=== PATIENT | male | born 1955 | race African-American/Black ===

== ENCOUNTER 2021-07-17 14:06 | Emergency (ER) | payer OTHER, SELFPAY ==
--- NOTE | ~2021-07-17 | CT_ITS ---
EXAMINATION: CT brain wo con DATE: 07/17/2021 14:54 INDICATION: Head injury. Loss of consciousness. TECHNIQUE: Computed tomography (CT) of the head was performed without intravenous contrast. The dose- length product was 605.33 mGy-cm. Automated exposure control and iterative reconstruction technique w ere employed. COMPARISON: None FINDINGS: Brain parenchymal volume is normal for age. No ventriculomegaly or midline shift. Basilar c isterns are patent. There is mild mucosal thickening of the ethmoid sinuses. Mastoids are pneumatized . No depressed skull fractures. Normal peter-white differentiation. There is a left parietal scalp hem atoma at the vertex. IMPRESSION: 1. No acute intracranial abnormality. Reviewed, dictated and finalized at location A.
--- NOTE | ~2021-07-17 | CT_ITS ---
EXAMINATION: CT cervical spine wo con DATE: 07/17/2021 14:59 INDICATION: head injury, +LOC TECHNIQUE: Computed tomography (CT) of the cervical spine was performed without intravenous contrast. Automated exposure control and iterative reconstruction technique were employed. The dose-length pro duct was 254.69 mGy-cm. COMPARISON: None FINDINGS: Counting reference: Craniocervical junction. There are seven cervical type vertebral bodies. Anatomic Variants: None. Vertebral Body Alignment: Reversal of the normal cervical lordosis. Craniocervical junction: Moderate degenerative change. Alignment intact. Osseous structures/fracture: No evidence of a lytic or blastic process in the visualized spine. N o evidence of acute fracture. Cervical soft tissues: The paraspinal soft tissues planes are maintained. Biapical pleural scarrin g. Degenerative changes: Severe degenerative disc disease at C4-5 and C5-6. Severe multilevel neural for aminal narrowing on the right. Multilevel moderate central canal narrowing. IMPRESSION: No acute fracture or traumatic malalignment in the cervical spine. Reviewed, dictated and finalized at location K.
[2021-07-17 14:16] VITALS: BP 123/71; PULSE 70; RESP 16; TEMP 36.7; O2SAT 100
--- NOTE | 2021-07-17 14:45 | ED.HEATRA ---
HPI - Head Injury General Chief complaint: Head Injury Stated complaint: Head injury Time Seen by Provider: 07/17/21 14:32 History of Present Illness HPI Narrative: 66-year-old male presents to the emergency room for evaluation of a head injury sustained at work earlier today. Patient states that the metal pipe fell from the ceiling and landed on his head, causing him to lose consciousness for an unknown period of time. Patient presents the emergency room with a laceration to the scalp and a headache. Patient denies photophobia, phonophobia, or nausea vomiting. Related Data Allergies Allergy/AdvReac Type Severity Reaction Status Date / Time No Known Allergies Allergy Verified 07/17/21 14:33 Review of Systems Review of Systems: CONSTITUTIONAL: Denies fever, chills, or sweats. EYES: Denies visual changes, redness, or discharge. ENT: Denies rhinorrhea, congestion, sore throat, or otalgia. CARDIOVASCULAR: Denies chest pain, palpitations, or edema. RESPIRATORY: Denies cough or dyspnea. GASTROINTESTINAL: Denies abdominal pain, nausea, vomiting, or diarrhea. GENITOURINARY: Denies dysuria or hematuria. SKIN: Reports scalp laceration MUSCULOSKELETAL: Reports head injury NEUROLOGIC: Denies headache, numbness, dizziness, or weakness. PSYCHIATRIC: Denies anxiety or depression. Exam Narrative: GENERAL: Well-appearing, well-nourished, and in no acute distress. HEAD: Normocephalic. 4 centimeter linear laceration to the scalp EYES: PERRLA and EOMI. ENT: Nares clear, no rhinorrhea or epistaxis. Mucous membranes moist. Oropharynx without tonsillar hypertrophy exudate or other lesions. Bilateral TMs pearly peter nonbulging NECK: Supple. No adenopathy or masses. No carotid bruits or JVD CHEST: Clear to auscultation. No respiratory distress. No wheezes rales or rhonchi HEART: Regular rate and rhythm. No murmur heard. Normal peripheral pulses. ABDOMEN: Soft, nontender, nondistended, normal active bowel sounds. EXTREMITIES: Normal range of motion. No edema. NECK/BACK: Midline cervical tenderness, no step-offs, no bony abnormality, full range of motion SKIN: 2.5 centimeter linear laceration to scalp NEURO: No focal deficits. Alert and oriented x3. PSYCH: Normal mood and affect. Course Vital Signs Vital signs: Vital Signs Temperature 36.7 C 07/17/21 14:16 Pulse Rate 70 07/17/21 14:16 Respiratory Rate 16 07/17/21 14:16 Blood Pressure 123/71 07/17/21 14:16 Pulse Oximetry 100 07/17/21 14:16 Temperature 36.7 C 07/17/21 14:16 Pulse Rate 70 07/17/21 14:16 Respiratory Rate 16 07/17/21 14:16 Blood Pressure 123/71 07/17/21 14:16 Pulse Oximetry 100 07/17/21 14:16 Procedures Laceration Laceration 1: Date: 07/17/21 Time: 15:11 Site: scalp Size (cm): 2.5 Description: linear Depth: simple, single layer Local Anesthetic: lidocaine 1% and with epi Amount of anesthesia used (mL): 4 Pre-repair: irrigated ====== Skin Level ====== Skin layer closed with: jorge Number of sutures: 5 ====== Subcutaneous Layer ====== ====== Muscle Layer ====== ====== Tendon Layer ====== MDM - Head Injury Imaging Data Radiologist's impression: Impressions Head CT 07/17/21 14:54 IMPRESSION: 1. No acute intracranial abnormality. Cervical Spine CT 07/17/21 15:01 IMPRESSION: No acute fracture or traumatic malalignment in the cervical spine. Discharge Plan Discharge Clinical Impression: Closed head injury Qualifiers: Encounter type: initial encounter Qualified Code(s): S09.90XA - Unspecified injury of head, initial encounter Patient Disposition: Home, Self-Care Condition: Stable Instructions: Antibiotic Form, Laceration (ED), Concussion (ED), Head Injury (ED) Additional Instructions: Recommend 2 to 3 days of rest from work. Refrain from activities that require exertion. May take napr
[2021-07-17] MEDS: ACETAMINOPHEN 500 MG TABLET 1000 MG PO (15:02)
[2021-07-17] MEDS: TETANUS,DIPHTHERIA,AC PERTUSSIS ADULT (0.5 ML) BOOSTRIX IM (15:45)
== END 2021-07-17 16:01 | disposition home or self-care (01) ==
PROVIDERS: Emergency Provider Nurse Practitioner Family
DX: S01.01XA Laceration without foreign body of scalp, initial encounter (principal); Z23 Encounter for immunization; W20.8XXA Other cause of strike by thrown, projected or falling object, initial encounter
CPT/HCPCS: 12001; 70450; 72125; 90471; 90715; 99284; A9270